=== PATIENT | female | born 1955 ===

== ENCOUNTER 2017-04-06 13:21 | Emergency (ER) | payer MEDICAID ==
[2017-04-06 13:30] VITALS: BMI 27.8
[2017-04-06 14:29] VITALS: TEMP 98.5
[2017-04-06 15:11] LABS: BASO # 0.02 K/mm3 (0.0-2.0); BASO % 0.4 % (0.0-3.0); EOS # 0.2 (0.0-0.7); EOS % 3.7 % (1.5-5.0); GRAN # 2.1 (1.4-6.5); GRAN % 45.4 % (50.0-68.0); HEMATOCRIT 35.8 % (36.0-48.0); LYMPH # 1.9 (1.2-3.4); LYMPH % 41.6 % (22.0-35.0); MEAN CELL VOLUME 80.4 fl (80.0-105.0); MEAN CORPUSCULAR HEMOGLOBIN 26.7 pg (25.0-35.0); MEAN CORPUSCULAR HGB CONC 33.2 g/dl (31.0-37.0); MEAN PLATELET VOLUME 10.7 fl (7.0-11.0); MONO # 0.4 (0.1-0.6); MONO % 8.9 % (1.0-6.0); RED CELL DISTRIBUTION WIDTH 13.9 % (11.5-14.5); WHITE BLOOD COUNT 4.6 10^3/ul (4.5-11.0)
[2017-04-06 15:21] LABS: ALB/GLOB RATIO 1.6 (1.1-1.8); ALKALINE PHOSPHATASE 49 U/L (38-126); ALT/SGPT 34 U/L (7-56); AST/SGOT 27 U/L (14-36); BILIRUBIN,TOTAL 0.5 mg/dL (0.2-1.3); BLOOD UREA NITROGEN 13 mg/dL (7-21); CALCIUM 9.5 mg/dL (8.4-10.5); CARBON DIOXIDE 24 mmol/L (21-33); CHLORIDE 109 mmol/L (98-107); GFR AFRICAN-AMERICAN > 60; GLUCOSE,RANDOM 89 mg/dL (70-110); POTASSIUM 4.2 mmol/L (3.6-5.0); SODIUM 141 mmol/L (132-148); TOTAL PROTEIN 6.6 g/dL (5.8-8.3)
--- NOTE | 2017-04-06 15:21 | RAD ---
HISTORY: Fatigue COMPARISON: 07/17/2016. FINDINGS: LUNGS: The lungs are well inflated and clear. PLEURA: No significant pleural effusion identified, no pneumothorax apparent. CARDIOVASCULAR: Normal. OSSEOUS STRUCTURES: No significant abnormalities. VISUALIZED UPPER ABDOMEN: Normal. OTHER FINDINGS: None. IMPRESSION: No active pulmonary disease.
--- NOTE | 2017-04-06 15:44 | ED PDOC ---
Arrival/HPI - General Chief Complaint: Upper Extremity Problem/Injury Time Seen by Provider: 04/06/17 13:48 - History of Present Illness Narrative History of Present Illness (Text): 04/06/17 14:20 62 F presents with 12 hour duration of weakness, fatigue, and L shoulder pain. Patient states that last night before going to bed, she had a pre-syncopal event , in which she felt dizzy, felt like she was going to fall, and became nauseas. Patient denies falling and hitting her head, f/cp/sob/v/d, urinary changes including urgency, frequency, incontinence, or malodorous urine, hematochezia, hematemesis, or hematuria. Pt further denies change in mentation, but does admit to having a headache and having chills last night. No further complaints at this time. (Manuel Costa) Past Medical History - Provider Review Nursing Documentation Reviewed: Yes - Infectious Disease Hx of Infectious Diseases: None - Tetanus Immunization Tetanus Immunization: Unknown - Reproductive Menopause: No - Past Medical History Past Medical History: No Previous - Cardiac Hx Hypertension: Yes - Hematological/Oncological Hx Blood Transfusions: No Hx Blood Transfusion Reaction: No - Musculoskeletal/Rheumatological Hx Musculoskeletal Disorders: Yes Hx Falls: Yes (04-19-14) Hx Fractures: Yes (04-19-14 CLOSED LEFT ANKLE FRACTURE) Hx Unsteady Gait: Yes - Gastrointestinal Hx Gastrointestinal Disorders: Yes Hx Gastroesophageal Reflux: Yes - Genitourinary/Gynecological Hx Genitourinary Disorders: Yes (OVARIAN CYSTS REMOVED) - Psychiatric Hx Depression: Yes Hx Emotional Abuse: No Hx Physical Abuse: No Hx Substance Use: No - Past Surgical History Past Surgical History: No Previous - Surgical History Hx Section: Yes - Anesthesia Hx Anesthesia Reactions: No Hx Malignant Hyperthermia: No - Suicidal Assessment Feels Threatened In Home Enviroment: No Family/Social History - Physician Review Nursing Documentation Reviewed: Yes Family/Social History: No Known Family HX Smoking Status: Heavy Smoker > 10 Cigarettes Daily Hx Alcohol Use: Yes (SOCIALLY) Hx Substance Use: No Hx Substance Use Treatment: No Allergies/Home Meds Allergies/Adverse Reactions: Allergies No Known Allergies Allergy (Verified 04/06/17 13:38) Home Medications: Home Meds Medication Instructions Recorded Confirmed amLODIPine [Norvasc] 5 mg PO DAILY 07/17/16 04/06/17 Review of Systems - Physician Review All systems were reviewed & negative as marked: Yes - Review of Systems Constitutional: Fatigue, Other (chills). absent: Weight Change, Fevers, Night Sweats Eyes: Photophobia. absent: Vision Changes, Eye Pain ENT: Normal. absent: Hearing Changes, Tinnitus, TMJ Pain Respiratory: Normal. absent: SOB, Cough, Sputum Cardiovascular: Normal. absent: Chest Pain, Palpitations, Edema, Calf Pain Gastrointestinal: Normal. absent: Abdominal Pain, Diarrhea, Nausea, Vomiting Genitourinary Female: Normal. absent: Dysuria, Frequency, Hematuria, Urine Output Changes Musculoskeletal: Arthralgias (shoulder pain). absent: Back Pain, Neck Pain, Joint Swelling Skin: Normal. absent: Rash, Pruritis, Skin Lesions, Laceration Neurological: Normal. absent: Headache, Dizziness, Focal Weakness, Gait Changes , Speech Changes Endocrine: Normal. absent: Diaphoresis, Polyuria, Polydipsia Hemo/Lymphatic: Normal. absent: Adenopathy, Easy Bleeding, Easy Bruising Psychiatric: Normal. absent: Anxiety, Depression, Suicidal Ideation Physical Exam Vital Signs Reviewed: Yes Temperature: Afebrile Blood Pressure: Normal Pulse: Regular Respiratory Rate: Normal Appearance: Positive for: Well-Appearing, Non-Toxic, Comfortable Pain Distress: None Mental Status: Positive for: Alert and Oriented X 3 - Systems Exam Head: Present: Atraumatic, Normocephalic. No: Tenderness, Contusion, Swelling, Ecchymosis Pupils: Present: PERRL. No: Sluggish, Non-Reactive, Pinpoint Extroacular Muscles: Present: EOMI. No: Gaze Palsy, Entrapment Conjunctiva: Present: Normal. No: Injected, Icteric Ears: Present: Normal, NORMAL TM, Normal Canal. No: Erythema, TM Bulging Mouth: Present: Moist Mucous Membranes. No: Dry, Drooling Pharnyx: Present: Normal. No: ERYTHEMA Nose (External): Present: Atraumatic. No: Abrasion, Contusion Neck: Present: Normal Range of Motion. No: Meningeal Signs, MIDLINE TENDERNESS , Paraspinal Tenderness Respiratory/Chest: Present: Clear to Auscultation, Good Air Exchange. No: Respiratory Distress, Accessory Muscle Use Cardiovascular: Present: Regular Rate and Rhythm, Normal S1, S2. No: Murmurs Abdomen: Present: Normal Bowel Sounds. No: Tenderness, Distention, Peritoneal Signs, Rebound, Guarding Back: Present: Normal Inspection. No: CVA Tenderness, Midline Tenderness, Paraspinal Tenderness Upper Extremity: Present: Normal Inspection, Normal ROM, NORMAL PULSES. No: Cyanosis, Edema, Tenderness Lower Extremity: Present: Normal Inspection, Normal ROM. No: Edema, CALF TENDERNESS, NORMAL PULSES, Cyanosis Neurological: Present: GCS=15, CN II-XII Intact, Speech Normal Skin: Present: Warm, Dry, Normal Color. No: Rashes, Diaphoretic, Erythematous Psychiatric: Present: Alert, Oriented x 3, Normal Insight, Normal Concentration , Normal Affect, Normal Mood. No: Depressed Mood, Suicidal Ideation, Homicidal Ideation Vital Signs Temp Pulse Resp BP Pulse Ox 04/06/17 17:03 81 17 130/82 98 04/06/17 15:28 69 18 127/71 99 04/06/17 14:27 98.5 F 73 16 129/79 99 04/06/17 13:34 98.2 F 81 18 129/77 98 Medical Decision Making ED Course and Treatment: Assessed: 04/06/17 14:20 Impression: 62 F Presenting with 12 hour duration of fatigue, weakness, and L shoulder pain Plan: - CK, Trope, EKG, CXR - CMP, CBC, Bl Cx, ESR - UA, Ur Cx - L shoulder XR - IBU 800 - Reassess Reassessed: 04/06/17 17:01 - Pt left [place] (Manuel Costa) Seen and examined with resident. 62 y/o F p/w general weakness, lightheadedness. On exam, L shoulder tenderness. Patient was offered further evaluation in hospital but wished to leave [place]. (Alex Zhang) - Lab Interpretations Lab Results: 04/06/17 14:55 04/06/17 14:55 Lab Results 04/06/17 16:20: Urine Color Yellow, Urine Appearance Clear, Urine pH 6.0, Ur Specific [place] 1.015, Urine Protein Negative, Urine Glucose (UA) Negative, Urine Ketones Negative, Urine Blood Small H, Urine Nitrate Negative, Urine Bilirubin Negative, Urine Urobilinogen 0.2, Ur Leukocyte Esterase Trace H, Urine RBC 5 - 10, Urine WBC 1 - 3, Ur Epithelial Cells 3 - 4, Urine Bacteria Few 04/06/17 14:55: Total Creatine Kinase 126, Troponin I < 0.01 04/06/17 14:55: Sodium 141, Potassium 4.2, Chloride 109 H, Carbon Dioxide 24, Anion Gap 12, BUN 13, Creatinine 0.6, Est GFR ( Amer) > 60, Est GFR (Non- Af Amer) > 60, Random Glucose 89, Calcium 9.5, Total Bilirubin 0.5, AST 27, ALT 34, Alkaline Phosphatase 49, Total Protein 6.6, Albumin 4.1, Globulin 2.5, Albumin/Globulin Ratio 1.6 04/06/17 14:55: WBC 4.6 D, RBC 4.45, Hgb 11.9 L, Hct 35.8 L, MCV 80.4, MCH 26.7 , MCHC 33.2, RDW 13.9, Plt Count 238, MPV 10.7, Gran % 45.4 L, Lymph % (Auto) 41.6 H, [place] % (Auto) 8.9 H, Eos % (Auto) 3.7, Baso % (Auto) 0.4, Gran # 2.10, Lymph # 1.9, [place] # 0.4, Eos # 0.2, Baso # 0.02, ESR 6 - RAD Interpretation Radiology Orders: 04/06/17 14:16 CHEST PORTABLE [RAD] Stat 04/06/17 15:26 SHOULDER LEFT [RAD] Stat - Medication Orders Current Medication Orders: Discontinued Medications Ibuprofen (Motrin Tab) 800 mg PO STAT STA Stop: 04/06/17 14:43 Disposition/Present on Arrival - Present on Arrival Any Indicators Present on Arrival: No History of DVT/PE: No History of Uncontrolled Diabetes: No Urinary Catheter: No History of Decub. Ulcer: No History Surgical Site Infection Following: None - Disposition Have Diagnosis and Disposition been Completed?: Yes Disposition Time: 17:00 Patient Plan: Discharge - Disposition Diagnosis: Near syncope Disposition: HOME/ ROUTINE Condition: GOOD Discharge Instructions (ExitCare): Near Syncope (ED) Additional Instructions: [Patient Name], thank you for letting us take care of you today. Your provider was [Provider Name Here]. You were treated for [Diagnosis Here]. The emergency medical care you received today was directed at your acute symptoms. If you were prescribed any medication, please fill it and take as directed. It may take several days for your symptoms to resolve. Return to the Emergency Department if your symptoms worsen, do not improve, or if you have any other problems. Please contact your doctor or call one of the physicians/clinics you have been referred to that are listed on the Patient Visit Information form that is included in your discharge packet. Bring any paperwork you were given at discharge with you along with any medications you are taking to your follow up visit. Our treatment cannot replace ongoing medical care by a primary care provider (PCP) outside of the emergency department. Thank you for allowing the [facility] team to be part of your care today. You decided to leave AMA today - please note that this could result in or permanent disability. Referrals: Ranjeet Hope MD [Primary Care Provider] - Follow up with primary Forms: [employer] ([place]ish) Against Medical Advice - AMA Patient Left Against Medical Advice: The patient declines admission to the hospital and wishes to leave the Emergency Department. This action is against my medical advice. This decision was made with informed refusal. The patient was told that admission to the hospital is necessary. Explanation of the reasons why were discussed. The risks of leaving were explained to the patient and include, but are not limited to, worsening of known or currently unknown conditions, permanent disability and from undiagnosed or untreated conditions. The patient has the capacity to make this informed decision and understands my explanation of the current medical problem and risks of leaving. The patient voluntarily accepts these risks and signed an AMA form documenting our conversation. The patient was given the opportunity to ask questions and reconsider. The patient was encouraged to return to the Emergency Department at any time for further care. (Alex Zhang)
[2017-04-06 16:37] LABS: URINE BILIRUBIN NEGATIVE (NEGATIVE); URINE BLOOD SMALL (NEGATIVE); URINE GLUCOSE (UA) NEGATIVE (NEGATIVE); URINE KETONE NEGATIVE (NEGATIVE); URINE LEUKOCYTE ESTERASE TRACE Leu/uL (NEGATIVE); URINE PROTEIN NEGATIVE mg/dL (<30 mg/dL); URINE UROBILINOGEN 0.2 E.U./dL (<1 E.U./dL)
[2017-04-06 16:40] LABS: URINE COLOR YELLOW (YELLOW)
[2017-04-06 16:41] LABS: URINE APPEARANCE CLEAR (CLEAR)
[2017-04-06 16:44] LABS: URINE BACTERIA FEW (NEG)
[2017-04-06 17:05] VITALS: BP 130/82; PULSE 81; RESP 17; O2SAT 98
--- NOTE | 2017-04-06 18:27 | RAD ---
PROCEDURE: Radiographs of the Left Shoulder HISTORY: shoulder pain COMPARISON: No prior. FINDINGS: BONES: Normal. No fracture. JOINTS: Normal. Glenohumeral and acromioclavicular joints preserved. No osteoarthritis. SOFT TISSUES: Normal. OTHER FINDINGS: None. IMPRESSION: Normal radiographs of the left shoulder.
[2017-04-06 19:14] LABS: TROPONIN I < 0.01 ng/mL
--- NOTE | 2017-04-07 01:04 | CARD ---
APPROVED REPORT EKG Measurement Heart [id number] <Conclusion> Normal sinus rhythm Normal ECG
== END 2017-04-06 17:10 | disposition home or self-care (01) ==
LOC: ED 13:21
DX: R55 Syncope and collapse (principal); I10 Essential (primary) hypertension; F17.210 Nicotine dependence, cigarettes, uncomplicated

== ENCOUNTER 2017-04-15 14:35 | Emergency (ER) | payer MEDICAID ==
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
[2017-04-15 14:46] VITALS: BMI 26.2
[2017-04-15 14:59] VITALS: RESP 18; TEMP 98.2
[2017-04-15 16:22] VITALS: BP 130/82; PULSE 82; O2SAT 98
--- NOTE | 2017-04-15 17:50 | RAD ---
PROCEDURE: Left middle finger radiographs. HISTORY: lt. hand injury from fall COMPARISON: None. TECHNIQUE: AP radiograph of the left hand, as well as spot oblique and lateral images of left middle finger were obtained. FINDINGS: LEFT MIDDLE FINGER: Left middle finger normal, without fracture of focal lesion. Remainder of the left hand (as seen on the AP view) is grossly unremarkable. JOINTS: Normal. SOFT TISSUES: Normal. OTHER FINDINGS: None. IMPRESSION: Normal left middle finger radiographs.
--- NOTE | 2017-04-15 17:51 | RAD ---
PROCEDURE: Left Hip X-ray Radiographs. HISTORY: lt. hip injury from fall. COMPARISON: None. FINDINGS: BONES: Normal. No fracture. JOINTS: Normal. SOFT TISSUES: Normal. OTHER FINDINGS: None. IMPRESSION: Normal left hip radiographs.
== END 2017-04-15 16:22 | disposition home or self-care (01) ==
LOC: ED 14:35
DX: T14.8XXA Other injury of unspecified body region, initial encounter (principal); V03.90XA Pedestrian on foot injured in collision with car, pick-up truck or van, unspecified whether traffic or nontraffic accident, initial encounter; Y92.410 Unspecified street and highway as the place of occurrence of the external cause; M25.50 Pain in unspecified joint